=== PATIENT | male | born 1965 | race Caucasian/White ===

== ENCOUNTER 2019-05-21 12:40 | Emergency (ER) | payer OTHER ==
[~2019-05-21] VITALS: Ht 175.2 cm; Wt 72.7 kg
[2019-05-21 13:16] LABS: HEMOGLOBIN 11.8 G/DL (13.3-17.7); MEAN PLATELET VOLUME 10.4 FL (7.4-10.4); RED CELL DISTRIBUTION WIDTH 13.8 % (10.0-14.5); WHITE BLOOD COUNT 5.6 10^3/uL (4.3-11.0)
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
[2019-05-21 13:36] LABS: ALANINE AMINOTRANSFERASE 9 U/L (0-55); ALBUMIN 3.5 GM/DL (3.2-4.5); ALKALINE PHOSPHATASE 41 U/L (40-136); BILIRUBIN,DIRECT 0.2 MG/DL (0.0-0.3); BILIRUBIN,INDIRECT 0.5 MG/DL; BILIRUBIN,TOTAL 0.7 MG/DL (0.1-1.0); BUN/CREATININE RATIO 11; CALCIUM 8.2 MG/DL (8.5-10.1); CARBON DIOXIDE 27 MMOL/L (21-32); CHLORIDE 107 MMOL/L (98-107); CREATININE SERUM 0.95 MG/DL (0.60-1.30); GFR ESTIMATED > 60; GLUCOSE 84 MG/DL (70-105); POTASSIUM 4.5 MMOL/L (3.6-5.0); SODIUM 140 MMOL/L (135-145)
[2019-05-21] MEDS ORDERED: NS 100 ML (IVPB) BAG IV ONE (14:15)
[2019-05-21] MEDS ORDERED: IOHEXOL 350 MG/ML 100 ML (OMNIPAQUE 350) VIAL IV ONE (14:15)
[2019-05-21] MEDS ORDERED: CATHETER FLUSH 10 ML SYR IV PRN (14:15)
[2019-05-21] MEDS ORDERED: HOLD METFORMIN - RECEIVED CONTRAST 20 ML VIAL IV SCH (14:15)
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
--- NOTE | 2019-05-21 14:42 | NUR ---
returned brom ct. patient is agitated because he needs to urinate. Asked the patient multiple times not to move his head. Continues to lift head and move head from side to side. Explained multiple times that it is for the safety of his neck, that if it were broken and he moves, he could be paralyzed perm. States he "does not give a rat's ass about his neck and i'll take full responsiblilty for my own neck. I have to piss" Patients sits up to urinate. notifredd
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
[2019-05-21] MEDS ORDERED: CYCL10TA9 PO (15:12)
[2019-05-21 15:37] VITALS: BP 125/46
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
== END 2019-05-21 15:37 | disposition home or self-care (01) ==
LOC: EDUNIT# 12:48 → ER 12:49
DX: S06.0X0A Concussion without loss of consciousness, initial encounter (principal); S30.1XXA Contusion of abdominal wall, initial encounter; S80.812A Abrasion, left lower leg, initial encounter; V49.50XA Passenger injured in collision with unspecified motor vehicles in traffic accident, initial encounter; Y92.411 Interstate highway as the place of occurrence of the external cause
CPT/HCPCS: 36415; 70450; 71045; 72125; 73560; 74177; 80048; 80076; 80320; 84484; 85027; 93005; 93041